=== PATIENT | male | born 1995 | race Two or more races ===

== ENCOUNTER 2017-02-25 05:21 | Emergency (ER) | payer OTHER ==
[~2017-02-25] VITALS: Ht 193 cm; Wt 86.2 kg
[2017-02-25 06:38] VITALS: BP 135/85
== END 2017-02-25 06:38 | disposition home or self-care (01) ==
LOC: ED 05:21
DX: S42.032A Displaced fracture of lateral end of left clavicle, initial encounter for closed fracture (principal); S01.01XA Laceration without foreign body of scalp, initial encounter; V49.9XXA Car occupant (driver) (passenger) injured in unspecified traffic accident, initial encounter; Y93.89 Activity, other specified; Y92.89 Other specified places as the place of occurrence of the external cause; Y99.8 Other external cause status
CPT/HCPCS: 90715; J1885; Q0092

== ENCOUNTER 2018-01-17 17:57 | Inpatient (IN) | payer OTHER ==
[~2018-01-17] VITALS: Ht 193 cm; Wt 86.0 kg
[2018-01-17 18:04] VITALS: Ht 193 cm; Wt 86.0 kg
[2018-01-17 19:08] LABS: BASOPHIL % 0.5 % (0-2); PLATELET COUNT 314 x10^3mcL (130-400); RED CELL DISTRIBUTION WIDTH 13.2 % (11.5-14.5)
[2018-01-17 19:21] LABS: CARBON DIOXIDE 29.3 mmol/L (21-32); CHLORIDE SERUM 101 mmol/L (98-107); CREATININE SERUM 0.9 mg/dL (0.7-1.3); GFR1 > 60 mL/min; GLUCOSE SERUM 107 mg/dL (74-106); POTASSIUM SERUM 3.8 mmol/L (3.5-5.1); SODIUM SERUM 136 mmol/L (136-145)
[2018-01-17 19:25] LABS: ALBUMIN 3.7 g/dL (3.4-5.0); ALKALINE PHOSPHATASE 71 U/L (46-116); ALT/SGPT 26 U/L (16-63); AMYLASE 41 U/L (25-115); AST/SGOT 21 U/L (15-37); BILIRUBIN TOTAL 1.15 mg/dL (0.20-1.00); LIPASE 66 IU/L (73-393); TOTAL PROTEIN, SERUM 7.3 g/dL (6.4-8.2)
[2018-01-17 20:45] LABS: AMPHETAMINE QUAL UR NONE DETECTED (NEG <=1000)
[2018-01-18] VITALS (7 sets, daily range): BP systolic 115–138; BP diastolic 65–85
[2018-01-18 06:39] LABS: ALKALINE PHOSPHATASE 58 U/L (46-116); ALT/SGPT 21 U/L (16-63); AST/SGOT 17 U/L (15-37); BILIRUBIN TOTAL 0.9 mg/dL (0.20-1.00); CALCIUM 8.1 mg/dL (8.5-10.1); CARBON DIOXIDE 29.8 mmol/L (21-32); CHLORIDE SERUM 105 mmol/L (98-107); GFR1 > 60 mL/min; GLUCOSE SERUM 99 mg/dL (74-106); POTASSIUM SERUM 4.1 mmol/L (3.5-5.1); SODIUM SERUM 139 mmol/L (136-145)
[2018-01-18 06:48] LABS: ALBUMIN 3.2 g/dL (3.4-5.0)
[2018-01-18 07:07] LABS: BASOPHIL % 0.7 % (0-2); PLATELET COUNT 246 x10^3mcL (130-400); RED CELL DISTRIBUTION WIDTH 13.3 % (11.5-14.5)
== END 2018-01-18 18:48 | disposition home or self-care (01) | DRG 242 ==
LOC: ED 17:57 → DU 21:32
PROVIDERS: Emergency Medicine; Internal Medicine Gastroenterology; Internal Medicine Pulmonary Disease
PROC: 0W3P8ZZ Control Bleeding in Gastrointestinal Tract, Via Natural or Artificial Opening Endoscopic (ICD-10-PCS; principal; 2018-01-18 11:30)
PROC: 0DB78ZX Excision of Stomach, Pylorus, Via Natural or Artificial Opening Endoscopic, Diagnostic (ICD-10-PCS; 2018-01-18 11:30)
DX: K22.6 Gastro-esophageal laceration-hemorrhage syndrome (principal); F14.10 Cocaine abuse, uncomplicated; E86.0 Dehydration; D64.9 Anemia, unspecified; F12.90 Cannabis use, unspecified, uncomplicated; Z72.89 Other problems related to lifestyle
CPT/HCPCS: 43235; 83880; C9113; J1200; J1610; J2250; J2310; J2405; J3010; J3490; J7030

== ENCOUNTER 2019-07-21 12:03 | Emergency (ER) | payer OTHER ==
[~2019-07-21] VITALS: Ht 182.9 cm; Wt 93.9 kg
[2019-07-21 12:33] VITALS: Ht 182.9 cm; Wt 93.9 kg
[2019-07-21 13:52] VITALS: BP 119/60
== END 2019-07-21 13:52 | disposition home or self-care (01) ==
LOC: ED 12:03
DX: H57.12 Ocular pain, left eye (principal)
CPT/HCPCS: J1885

== ENCOUNTER 2020-08-29 12:23 | Emergency (ER) | payer OTHER ==
[~2020-08-29] VITALS: Ht 193 cm; Wt 99.3 kg
[2020-08-29 12:55] VITALS: Ht 193 cm; Wt 99.3 kg
[2020-08-29 14:00] VITALS: BP 138/79
== END 2020-08-29 14:00 | disposition home or self-care (01) ==
LOC: ED 12:23
DX: R21 Rash and other nonspecific skin eruption (principal); Z98.890 Other specified postprocedural states